=== PATIENT | male | born 1995 | race Caucasian/White ===

== ENCOUNTER 2021-12-04 19:53 | Emergency (ER) | payer MEDICAID ==
[~2021-12-04] VITALS: Ht 177.8 cm; Wt 118.0 kg
[2021-12-04 20:10] VITALS: BP 112/68
[2021-12-04] MEDS ORDERED: CYCL-1 PO (22:34)
[2021-12-04] MEDS ORDERED: ALBU8.5H17 INH (22:49)
== END 2021-12-04 22:52 | disposition home or self-care (01) ==
LOC: ER 19:54
DX: M54.59 Other low back pain (principal); Z88.8 Allergy status to other drugs, medicaments and biological substances
CPT/HCPCS: 72170; 99283